=== PATIENT | female | born 1970 | race Caucasian/White ===

== ENCOUNTER 2019-05-09 11:29 | Emergency (ER) | payer OTHER ==
[2019-05-09 11:41] VITALS: TEMP 96.6
--- NOTE | 2019-05-09 11:45 | ED.PDOC ---
History of Present Illness - General Chief Complaint: Lower Extremity Injury Stated Complaint: right foot injury Time Seen by Provider: 05/09/19 11:30 Source: patient, RN notes reviewed, Vital Signs reviewed Exam Limitations: no limitations Additional Information: this is a 49-year-old white female who presents to the emergency department with right foot pain. 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 She had had a previous right fifth metatarsal fracture in the past. States that it was not complicated. Patient reports having right foot pain at this time along the metatarsal region and just medial to the fifth metatarsal. No other injuries reported. - History of Present Illness Allergies/Adverse Reactions: Allergies Latex Allergy (Verified 05/09/19 11:35) Home Medications: Ambulatory Orders Acetaminophen W/ Codeine [Tylenol W/ CODEINE #3] 1 ea PO Q8HRS #20 05/09/19 Divalproex Sodium [Depakote ER] 1,000 mg PO BEDTIME 05/09/19 Divalproex Sodium [Depakote ER] 500 mg PO QAM 05/09/19 Levothyroxine Sodium [Synthroid] 200 mcg PO DAILY 05/09/19 Ropinirole Hydrochloride [Ropinirole HCl] 0.5 mg PO BEDTIME 05/09/19 Trazodone HCl [Trazodone Hydrochloride] 50 mg PO BEDTIME 05/09/19 Review of Systems - Review of Systems Constitutional: States: no symptoms reported Gastrointestinal/Abdominal: States: no symptoms reported Musculoskeletal: States: other - right foot pain overlying the metatarsals Skin: States: other - abrasion to the right foot Neurological: States: no symptoms reported. Denies: numbness, paresthesia, pre- existing deficit All other Systems: Reviewed and Negative Family Medical History - Family History Mother Family History: Unknown Physical Exam - Physical Exam General Appearance: Alert, No apparent distress Ankle: normal inspection, non-tender, no evidence of injury, normal ROM Foot: bone tenderness, ecchymosis, limited ROM, soft tissue tenderness, swelling, other - abrasion noted to the top of the foot. This overlies the region of the third and fourth metatarsal there is associated swelling there as well. No evidence of an open fracture. DTR - Lower Extremities: 4+: Achilles, left, Achilles, right Neuro/Tendon: normal sensation, normal motor functions, responds to pain Mental Status: alert, oriented x 3 Progress - Progress Progress: 05/09/19 12:43 I went over the x-rays with the patient. The radiologist's is stating possible fracture at the base of the fifth metatarsal. The patient has had a fracture in this area before and she is not having current pain there now. I do not believe that this is an acute fracture in this area. It is remote from the location of the ecchymosis and abrasion and edema. Go ahead and treat her with a 3-D walking boot and have her follow up with orthopedist for recheck and possible additional x-rays. - Results/Orders Results/Orders: Findings: Three views/radiographs Bunionectomy. Lisfranc alignment is maintained. No focal soft tissue swelling. Mild first MTP arthropathy. Joint sp aces are otherwise preserved. No dislocation. Possible nondisplaced transverse fifth metatarsal base fracture. IMPRESSION: Possible nondisplaced transverse fifth metatarsal base fracture. Electronically signed by: Dany Carpenter MD 05/09/2019 12:34 PM [employer] Departure - Departure Clinical Impression: Fracture of foot Qualifiers: Encounter type: initial encounter Fracture type: closed Laterality: right Quali fied Code(s): S92.901A - Unspecified fracture of right foot, initial encounter for closed fracture Time of Disposition: 12:45 Disposition: Discharge to Home or Self Care Condition: Good Departure Forms: ED Discharge - Pt. Copy, Patient Portal Self Enrollment Instructions: Foot Fracture (DC) Activity: other - use walking boot at all times other than while driving Referrals: Reuben Singh MD [Active Staff] - 1-2 Weeks Prescriptions: Acetaminophen W/ Codeine [Tylenol W/ CODEINE #3] 1 ea PO Q8HRS #20 Home Medications: Ambulatory Orders Acetaminophen W/ Codeine [Tylenol W/ CODEINE #3] 1 ea PO Q8HRS #20 05/09/19 Divalproex Sodium [Depakote ER] 1,000 mg PO BEDTIME 05/09/19 Divalproex Sodium [Depakote ER] 500 mg PO QAM 05/09/19 Levothyroxine Sodium [Synthroid] 200 mcg PO DAILY 05/09/19 Ropinirole Hydrochloride [Ropinirole HCl] 0.5 mg PO BEDTIME 05/09/19 Trazodone HCl [Trazodone Hydrochloride] 50 mg PO BEDTIME 05/09/19 Additional Instructions: follow-up with Dr. singh. Call for an appointment. Ice and elevate as much as possible over the next 48 hours. Use walking boot at all times other than while driving. Return to emergency department if needed.
[2019-05-09] MEDS ORDERED: KETOROLAC TROMETHAMINE INJ 60 MG/2 ML VIAL IM ONE (11:46)
--- NOTE | 2019-05-09 12:35 | RAD ---
EXAM DESCRIPTION: Foot,Right 3 Views CLINICAL HISTORY: 49 years Female, foot pain COMPARISON: None. Findings: Three views/radiographs Bunionectomy. Lisfranc alignment is maintained. No focal soft tissue swelling. Mild first MTP arthropathy. Joint spaces are otherwise preserved. No dislocation. Possible nondisplaced transverse fifth metatarsal base fracture. IMPRESSION: Possible nondisplaced transverse fifth metatarsal base fracture. Electronically signed by: Dany Carpenter MD 05/09/2019 12:34 PM [facility]
[2019-05-09 13:11] VITALS: BP 112/75; O2SAT 99
== END 2019-05-09 13:02 | disposition home or self-care (01) ==
LOC: ER 11:29
DX: S92.354A Nondisplaced fracture of fifth metatarsal bone, right foot, initial encounter for closed fracture (principal); Z87.81 Personal history of (healed) traumatic fracture; W20.8XXA Other cause of strike by thrown, projected or falling object, initial encounter; Y99.0 Civilian activity done for income or pay; Y92.69 Other specified industrial and construction area as the place of occurrence of the external cause; Z91.040 Latex allergy status; Z79.899 Other long term (current) drug therapy
CPT/HCPCS: 73630; J1885